=== PATIENT | female | born 1970 | race Caucasian/White ===

== ENCOUNTER 2017-06-13 11:13 | Emergency (ER) | payer OTHER ==
[~2017-06-13] VITALS: Ht 167.6 cm; Wt 88.1 kg
[2017-06-13 11:15] VITALS: BP 129/68; PULSE 110; RESP 16; TEMP 98.1; O2SAT 97
[2017-06-13] MEDS ORDERED: ALBUAER3 INH (11:29)
[2017-06-13] MEDS ORDERED: LISI20TA3 PO (11:29)
[2017-06-13] MEDS ORDERED: TRAM50TA PO (11:29)
[2017-06-13] MEDS ORDERED: OMEP40CA2 PO (11:29)
[2017-06-13] MEDS ORDERED: DIAZ5TAB PO (11:29)
[2017-06-13] MEDS ORDERED: FURO40TA PO (11:29)
[2017-06-13] MEDS ORDERED: POTA-163 PO (11:29)
[2017-06-13] MEDS ORDERED: LEVOTAB PO (11:29)
[2017-06-13] MEDS ORDERED: IBUP1TAB7 PO (11:45)
--- NOTE | 2017-06-13 11:45 | PD ---
HPI Chief Complaint: Musculoskeletal Complaint Time Seen by Provider: 11:46 Travel History International Travel<30 days: No Contact w/Intl Traveler<30days: No Traveled to known affect area: No History of Present Illness HPI 46-year-old female here for evaluation of bilateral elbow swelling 1 month. Patient denies any injury. She reports only mild discomfort at the site of the elbows. She denies fever or chills. She denies any other joint involvement. She reports she had similar episode with her knee several years ago which resolved spontaneously. Symptom severity is mild. No alleviating factors. PFSH Past Medical History Asthma: Yes Diabetes: No Diminished Hearing: No GERD: Yes Hypertension: Yes Tetanus Vaccination: Unknown ?: Not Menopausal: Yes Past Surgical History Surgical History: No Previous Surgery Social History Alcohol Use: Yes (RARE) Tobacco Use: Yes (/3 PPD) Substance Use: No Allergies-Medications (Allergen,Severity, Reaction): Coded Allergies: Penicillins (Verified Allergy, Severe, SWELLING, 06/13/17) acetaminophen (Verified Allergy, Severe, ITCHY/HIVES, 06/13/17) hydrocodone (Verified Allergy, Severe, ITCHY/HIVES, 06/13/17) propoxyphene (Verified Allergy, Severe, ITCHY/HIVES, 06/13/17) Reported Meds & Prescriptions Reported Meds & Active Scripts Active Ibuprofen 800 Mg Tab 800 Mg PO Q6HR PRN Reported Proair Hfa 8.5 GM Inh (Albuterol Sulfate) 90 Mcg/Act Aer 2 Puff INH Q4-6H PRN 108 mcg/actuation Tramadol (Tramadol HCl) 50 Mg Tab 50 Mg PO Q6H PRN Potassium Chloride ER (Potassium Chloride) 20 Meq Tab 20 Meq PO DAILY Furosemide 40 Mg Tab 40 Mg PO DAILY Levocetirizine 5 Mg Tab 5 Mg PO DAILY Lisinopril-Hctz 20-25 Mg Tab 1 Tab PO DAILY Diazepam 5 Mg Tab 5 Mg PO BID PRN Omeprazole 40 Mg Cap 40 Mg PO DAILY Review of Systems Except as stated in HPI: all other systems reviewed are Neg General / Constitutional: No: Fever Physical Exam Narrative GENERAL: Well-nourished, well-developed patient. SKIN: Focused skin assessment warm/dry. HEAD: Normocephalic. EYES: No scleral icterus. No injection or drainage. NECK: Supple, trachea midline. No JVD or lymphadenopathy. CARDIOVASCULAR: Regular rate and rhythm without murmurs, gallops, or rubs. RESPIRATORY: Breath sounds equal bilaterally. No accessory muscle use. GASTROINTESTINAL: Abdomen soft, non-tender, nondistended. MUSCULOSKELETAL: No cyanosis. + Bilateral Olecranon bursitis. No overlying erythema, warmth or evidence of infection. Patient has full range of motion of both elbows. 2+ distal pulses. Brisk cap refill. Data Data Last Documented VS Vital Signs Date Time Temp Pulse Resp B/P (MAP) Pulse Ox O2 Delivery O2 Flow Rate FiO2 06/13/17 11:15 98.1 110 16 129/68 (88) 97 MDM Medical Decision Making Medical Screen Exam Complete: Yes Emergency Medical Condition: Yes Differential Diagnosis Bursitis, tendinitis, arthritis, joint effusion Narrative Course 46-year-old female here for evaluation of bilateral elbow swelling 1 month. Patient denies any injury. On exam she has swelling to both elbows consistent with bursitis. No overlying erythema, warmth or signs of infection. Patient reports similar symptoms and her knees in the past. Patient will be treated for bursitis with NSAIDs and instructed to follow-up with her PCP. Patient verbalizes understanding and agrees to plan Diagnosis Primary Impression: Bursitis Qualified Codes: M70.21 - Olecranon bursitis, right elbow; M70.22 - Olecranon bursitis, left elbow Referrals: Primary Care Physician as needed Patient Instructions: General Instructions Departure Forms: Tests/Procedures Additional Instructions: Take the Motrin as directed. Avoid heavy lifting or strenuous activity such as pulling. Follow-up with her primary doctor for recheck. Return to the emergency department if he developed new or worsening symptoms Scripts Ibuprofen (Ibuprofen) 800 Mg Tab 800 MG PO Q6HR Y for PAIN, #40 TAB 0 Refills Prov: Va Breaux 06/13/17 Disposition: 01 DISCHARGE HOME Condition: Stable Va Breaux Jun 13, 2017 11:45
== END 2017-06-13 12:15 | disposition home or self-care (01) ==
LOC: PHEFT 11:13
DX: M70.22 Olecranon bursitis, left elbow (principal); M70.21 Olecranon bursitis, right elbow; F17.210 Nicotine dependence, cigarettes, uncomplicated
CPT/HCPCS: 99283